=== PATIENT | female | born 1945 | race Caucasian/White ===

== ENCOUNTER → 2024-10-15 07:44 | Outpatient (REF) | payer MEDICARE, BC, SELFPAY | LOC: HWRAD 07:44 | PROVIDERS: ATTENDING PHYSICIAN Family Medicine | DX: Z91.89 Other specified personal risk factors, not elsewhere classified (principal) | CPT/HCPCS: 75571 ==

== ENCOUNTER → 2024-12-02 11:31 | Outpatient (REF) | payer MEDICARE, BC, SELFPAY | LOC: HWWDC 11:31 | PROVIDERS: ATTENDING PHYSICIAN Family Medicine | DX: Z12.31 Encounter for screening mammogram for malignant neoplasm of breast (principal) | CPT/HCPCS: 77063; 77067 ==

== ENCOUNTER → 2025-01-26 09:56 | Outpatient (REF) | payer MEDICARE, BC, SELFPAY | LOC: RCS 09:56 | PROVIDERS: ATTENDING PHYSICIAN Internal Medicine Cardiovascular Disease; FAMILY PHYSICIAN Family Medicine | DX: I25.10 Atherosclerotic heart disease of native coronary artery without angina pectoris (principal); E11.9 Type 2 diabetes mellitus without complications; R06.02 Shortness of breath; M25.569 Pain in unspecified knee; Z01.810 Encounter for preprocedural cardiovascular examination; I25.2 Old myocardial infarction | CPT/HCPCS: 93306 ==

== ENCOUNTER → 2025-01-28 11:23 | Outpatient (REF) | payer MEDICARE, BC, SELFPAY | LOC: HWRCS 11:23 | PROVIDERS: ATTENDING PHYSICIAN Internal Medicine Cardiovascular Disease; FAMILY PHYSICIAN Family Medicine | DX: I25.10 Atherosclerotic heart disease of native coronary artery without angina pectoris (principal); E11.9 Type 2 diabetes mellitus without complications; R06.02 Shortness of breath; M25.569 Pain in unspecified knee; Z01.810 Encounter for preprocedural cardiovascular examination; I25.2 Old myocardial infarction | CPT/HCPCS: 78452; 93017; A9500; J2785 ==

== ENCOUNTER 2025-03-02 07:24 | Inpatient (IN) | payer MEDICARE, BC, SELFPAY ==
--- NOTE | 2025-01-12 11:55 | CM ---
Addendum entered by Abena Buck RN 01/13/25 14:29:
Demographics: confirmed
Living situation: Lives in basement apartment with 7 steps down.
Support Person Post Operatively: Lives with son and his family.
History of
VN: no
SNF: no
Outpatient: Jessie Qureshi, currently awaiting confirming appointments
Has patient purchased required equipment: patient has a walker, plans to order gel wrap, SCD
PCP: active
Pharmacy: [facility]
Post Operative Discharge Plan: Home with family, outpatient PT.
Original Note:
Cm reviewed medical records. CM left message for orthopedic [place].
[2025-01-20 13:44] VITALS: BMI 39.7
[2025-01-20 14:10] LABS: Hematocrit 40.6 % (37.0-47.0); Hemoglobin 13.2 g/dL (12.0-16.0); Mean Corp Hgb Conc. 32.5 g/dL (33.0-37.0); Mean Corpuscular Volume 87.7 fL (81.0-99.0); Platelet Count 177 10^3/uL (130-400); Red Cell Dist. Width 14.5 % (11.5-14.5)
[2025-01-20 14:37] LABS: ALT (SGPT) 18 U/L (0-35); AST (SGOT) 15 U/L (14-36); Albumin 4.1 g/dl (3.5-5.0); Alkaline Phosphatase 59 U/L (38-126); Blood Urea Nitrogen 16 mg/dl (7-17); Calcium 9.3 mg/dl (8.4-10.2); Carbon Dioxide 27 mmol/L (22-30); Chloride 105 mmol/L (98-107); Estimated Creatinine Clearance 95 ml/min; Glucose 233 mg/dl (70-99); Potassium 5.0 mmol/L (3.5-5.1); Sodium 138 mmol/L (135-145); Total Protein 6.6 g/dl (6.3-8.2); eGFR > 60.00
[2025-01-20 17:17] VITALS: BMI 39.7
[2025-01-21 10:31] LABS: Glycohemoglobin (HgbA1c) 7.1 % (4.0-5.9)
--- NOTE | 2025-02-16 14:05 | HPS.HSE ---
Family Physician
-
Family Physician: Mao Manriquez
Chief Complaint
-
Advanced primary osteoarthritis of the right knee.
History of Present Illness
The patient is a 80-year-old female presenting today for advanced primary osteoarthritis of the right knee. The patient reports significant right knee pain and instability secondary to this diagnosis. She notes that her current right knee
pain is greatly interfering with her activities of daily living and is overall impacting her quality of life. She has tried and failed multiple conservative treatment measures in the past for her right knee pain. These conservative treatment
measures include activity modification, self-directed therapeutic exercises, formal physical therapy, attempted weight loss, medical management with NSAIDs, injection therapy, and the application of ice and/or heat. Recent x-ray findings of the
right knee demonstrated [id number] medial compartment osteoarthritis. She was determined to be in need of a right total knee arthroplasty. She denies any current complaints today, such as chest pain, shortness of breath at rest, palpitations,
nausea, vomiting, diarrhea, lightheadedness, dizziness, cough, sore throat, or fever.
Medical History
Past Medical History
Past Medical History: Reports Other
Additional Past Medical History:
1. Osteoarthritis.
2. Elevated blood pressure without diagnosis of hypertension.
3. Hyperlipidemia.
4. Prior myocardial infarction/multivessel coronary artery disease per calcium score 09/2024; recent nuclear stress test stable.
5. PACs, asymptomatic.
6. Mild-moderate valvular disease.
7. Obstructive sleep apnea, noncompliant with CPAP.
8. Bek-xativsw-flfgiizgf diabetes, A1c 7.1.
9. Hiatal hernia.
10. Colon polyps.
11. Diverticulosis with history of diverticulitis.
12. Hepatic steatosis.
13. Migraines.
14. Vertigo.
15. Lumbar degenerative disc disease.
16. Hypothyroidism per records.
17. Fibromyalgia.
18. Gluten sensitivity.
19. Osteoporosis.
20. Insomnia.
21. Obesity, BMI 39.7.
Past Surgical History: Reports Other
Additional Past Surgical History:
1. Total abdominal hysterectomy and bilateral salpingo-oophorectomy.
2. Lysis of adhesions.
3. Ovarian cystectomy and appendectomy.
4. Vaginal band removal.
5. Neck tumor excision (benign).
6. Bilateral retina surgery.
7. [place] teeth extraction.
8. Multiple colonoscopies.
Social History
Tobacco: Non-smoker
Alcohol: None
Living: With Family (in a two-story home. She initially scheduled outpatient PT with [facility]; however, she may change to somewhere closer to home. She was advised that her first session should be the Friday after her surgery. )
Family History
Family History: Not pertinent
Allergies / Home Medications
Allergy/Medication List:
Home medications:
1. Aspirin 325 mg p.o. daily as needed.
2. Beet root 2 tablets p.o. daily.
3. Berberine chloride 1 capsule p.o. daily.
4. Bio Complete 3, 2 capsules p.o. daily.
5. Cholecalciferol 125 mcg p.o. daily.
6. Chromium picolinate 1 capsule p.o. daily.
7. [place] bergamot 2 capsules p.o. daily.
8. Co Q10 1 capsule p.o. daily.
9. Coral calcium 1 capsule p.o. 3 times a week.
10. Duloxetine 20 mg p.o. daily if needed.
11. Gentle patches - GLP 1, 1 patch topical daily.
12. Glimepiride 2 mg p.o. daily.
13. Glutathione 2 capsules p.o. daily.
14. Magnesium complex 1 capsule p.o. 3-4 times a week.
15. Multivitamin 1 tablet p.o. occasionally.
16. [place] XL 2 capsules p.o. daily.
17. Potassium citrate and magnesium 2 capsules p.o. at bedtime.
18. Primal supplement 2 capsules p.o. at bedtime.
19. Resveratrol 2 capsules p.o. daily.
20. Rosuvastatin 20 mg p.o. at bedtime.
21. Saffron extract 1 capsule p.o. twice a day.
22. Ultra biotin 1 capsule p.o. 3-5 times a week.
Allergies: Codeine. Benadryl. Metformin. Prednisone. Tetracyclines.
Review of Systems
-
A 12 point ROS was completed and negative except as noted: Yes
Physical Exam
Vital Signs
Blood pressure 164/92. Heart rate 85. Respirations 18. Pulse ox 95% on room air.
Height 5 feet, 5 inches. Weight 108.3 kg. BMI 39.7.
Physical Exam
General: Well Developed, Well Nourished and No Apparent Distress
HEENT: NormoCephalic, Moist mucous membranes, Atraumatic and PERRLA
Respiratory: Clear
Cardiac: Regular Rhythm
GI: Soft, Non Tender, Non Distended and Other (Obese. )
Musculoskeletal: Other (Right knee: 0-120 range of motion, neutral alignment, positive warmth, positive effusion. Left knee: 0-120 range of motion, neutral alignment, no warmth, positive effusion. Bilateral hips: 10 internal, 10 external with pain
upon passive motion. )
Skin: Warm and Dry
Neuro: AO x 3 and Nonfocal/grossly intact
Laboratory Results
-
01/20/25 12:48
01/20/25 12:48
Laboratory Results
Total Bilirubin 1.0 mg/dl (0.2-1.3) 01/20/25 12:48
AST 15 U/L (14-36) 01/20/25 12:48
ALT 18 U/L (0-35) 01/20/25 12:48
Alkaline Phosphatase 59 U/L (38-126) 01/20/25 12:48
Hemoglobin A1c 7.1.
MRSA screen negative.
EKG 01/20/2025: Sinus rhythm with premature atrial complexes. Otherwise normal EKG.
Echocardiogram 01/26/2025: Ejection fraction is 70-75% by visual assessment. Right ventricular size and systolic function are within normal limits. Dense mitral annular calcification. Mild to moderate mitral valve stenosis. Mean gradient 5 mmHg.
Nuclear stress test 01/28/2025: Negative ECG for ischemia given the pharmacological study. There was a small-sized, mild in intensity, fixed perfusion defect in the mid inferolateral wall consistent with infarction versus soft tissue attenuation
artifact. Systolic function is normal. The ejection fraction is 72%. Stress Risk is low risk study, but the patient may be at moderate risk (risk of 1 - 3% GA or /year) due to the pharmacologic agent used.
Impression/Plan
-
CLEARANCES:
1. Primary medical, Molly Chandler PA-C, cleared.
[facility] medical phone number: [phone].
2. Cardiology, Dr. Torres Kumar, cleared.
3. Dental waived.
IMPRESSION/PLAN:
1. Advanced primary osteoarthritis of the right knee in need of a right total knee arthroplasty by Dr. Michael Huerta on 03/02/2025. The benefits and risks of the procedure have been explained to the patient. The patient understands these risks and
wishes to proceed.
2. DVT prophylaxis: Aspirin and bilateral venous compression devices.
3. Pain management: We will utilize Oxycodone as needed for moderate to severe post-operative pain. We will also include Celebrex 200 mg p.o. daily. She would prefer to avoid Tylenol. We will also try to minimize steroids due to her history of
gxe-hhxsdik-tjjhlinwd diabetes.
4. Post-operative bowel regimen: She will be started on both Colace and Senokot post-procedure. These will be taken twice a day post-procedure, regardless of oral intake, until she is having regular bowel movements. Adequate hydration, early
mobility as tolerated, and the minimization of opioids have been discussed fela-operatively.
5. Elevated infection risk: The patient is considered to be an elevated risk of infection due to her elevated BMI >35 and her zfj-hydbucu-ojvlcpdfy diabetes. Because of this, she will be prescribed Cefadroxil upon discharge. Probiotic use will be
highly encouraged while on this antibiotic.
Patient's home phone number: [phone].
Patient's cell phone number: [phone].
Patient's contact (Cornelius Moore - Son): [phone].
[2025-03-02] VITALS (20 sets, daily range): BP systolic 115–188; BP diastolic 56–108; PULSE 79; O2SAT 94
[2025-03-02 07:52] LABS: Glucose - Point of Care 184 mg/dl (70-99)
[2025-03-02] MEDS: CELEBREX 200 MG PO (08:08)
[2025-03-02] MEDS: NORMOSOL-R/PLASMALYTE-A 1000 IV ×2 (08:08→12:03)
[2025-03-02 10:37] LABS: Glucose - Point of Care 207 mg/dl (70-99)
[2025-03-02] MEDS: ZOFRAN 4 MG IV ×2 (11:23→19:04)
[2025-03-02] MEDS: ROXICODONE 5 MG PO (12:01)
--- NOTE | 2025-03-02 12:18 | W.PN.ORTHO ---
Today's Communication / Plan
-
d/c when stable
Assessment
.
Distal Motor Intact: Yes
Assessment:
NIDDM-add Novolog and Lantus-Cefadroxil ppx
Plan
.
Surgery / Date: R CACHORRO Huerta 03/02/25
DVT Prophylaxis: Aspirin
Activity:
Out of bed.
PT/OT
Discharge Plan: Home w/ Outpatient PT
Vital Signs and Labs
.
Vital Signs and Labs:
Lab Results
01/20/25 12:48
01/20/25 12:48
Temp Pulse Resp BP Pulse Ox
98.9 F 73 14 155/76 95
03/02/25 10:10 03/02/25 12:00 03/02/25 12:00 03/02/25 11:46 03/02/25 12:00
Physical Exam
-
HEENT: No pallor, cyanosis, or jaundice. Throat clear.
NECK: Supple. No JVD.
RESPIRATORY: Lungs clear to auscultation.
CVS: S1, S2 normal. RRR.� No murmur, rub or gallop.
ABDOMEN: Soft, non-tender. No distension. BS+/normal.
EXTREMITIES: strength equal, no calf pain with palpation
TYPEWRITER ALIGNER: AOx3. No focal deficits. accounts receivable assistant grossly intact
--- NOTE | 2025-03-02 12:24 | W.DS.TRANS ---
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
-
Discharge Instructions:
Discharge Diagnosis/Procedures R knee OA s/p R TKA w/ Dr Huerta 01/26/2025
Diet Diabetic, Carb Controlled
Additional Diets Adequate hydration, minimize opioids, and wear
TEDs stockings to prevent low blood pressure/
dizziness.
Activity As tolerated,With Walker
Driving Restrictions Not until seen by your Dr
Bathing Restrictions OK to Shower
Other Services PT
Wound Care Dressing to be removed 1 week post-surgery.
Instructions:
Stand-Alone Forms: Total Hip/Knee Replacement D/C
Changes to Home Medications: Yes
Discharge Medications:
DC Medications w/original date entered in [employer]
Beetroot 2 tab PO DAILY 01/18/25
Held on 03/02/25. Instructions: Resume on 03/10/25.
Biocomplete 3 2 cap PO DAILY 01/18/25
Held on 03/02/25. Instructions: Resume on 03/10/25.
[place] Bergamot 2 cap PO DAILY 01/18/25
Held on 03/02/25. Instructions: Resume on 03/10/25.
Co Q-10 1 cap PO DAILY 01/18/25
Held on 03/02/25. Instructions: Resume on 03/10/25.
Coral Calcium 1 cap PO .3 TIMES/WEEK 01/18/25
Gentle Patches - Glp 1 Patch 1 patch topical DAILY 01/18/25
Magnesium Complex 1 cap PO .3-4 TIMES/WEEK 01/18/25
[place] Xl 2 cap PO DAILY 01/18/25
Held on 03/02/25. Instructions: Resume on 03/10/25.
Potassium Citrate & Magnesium 2 cap PO HS 01/18/25
Primal Supplement 2 cap PO HS 01/18/25
Held on 03/02/25. Instructions: Resume on 03/10/25.
Ultra Biotin 1 cap PO .3 TO 5 TIMES/WEEK 01/18/25
Held on 03/02/25. Instructions: Resume on 03/10/25.
berberine chloride 1 cap PO DAILY 01/18/25
Held on 03/02/25. Instructions: Resume on 03/10/25.
cholecalciferol (vitamin D3) 125 mcg (5,000 unit) tablet (Vitamin D3) 125 mcg PO DAILY 01/18/25
chromium picolinate 1 cap PO DAILY 01/18/25
Held on 03/02/25. Instructions: Resume on 03/10/25.
duloxetine 20 mg capsule,delayed release 20 mg PO PRN PRN if no sleep for 3 days 01/18/25
glimepiride 2 mg tablet 2 mg PO DAILY 01/18/25
glutathione 2 cap PO DAILY 01/18/25
Held on 03/02/25. Instructions: Resume on 03/10/25.
multivitamin 1 tab PO .OCCASIONALLY 01/18/25
Held on 03/02/25. Instructions: Resume on 03/10/25.
resveratrol 2 cap PO DAILY 01/18/25
Held on 03/02/25. Instructions: Resume on 03/10/25.
rosuvastatin 20 mg tablet 20 mg PO HS 01/18/25
saffron extract 1 cap PO BID 01/18/25
Held on 03/02/25. Instructions: Resume on 03/10/25.
mupirocin 2 % topical ointment 1 applic intranasal BID #1 tube 01/20/25
cefadroxil 500 mg capsule 500 mg PO BID #14 caps 01/21/25
celecoxib 200 mg capsule (Celebrex) 200 mg PO DAILY #14 caps 01/21/25
famotidine 20 mg tablet (Pepcid) 20 mg PO HS #30 tabs 01/21/25
ondansetron HCl 4 mg tablet 4 mg PO Q6H PRN nausea and vomiting #30 tabs 01/21/25
oxycodone 5 mg tablet 5 - 10 mg (1 - 2 x 5 mg) PO Q6H PRN moderate-severe pain #30 tabs 01/21/25
Saccharomyces boulardii 250 mg capsule (Florastor) 250 mg PO BID #1 cap 03/02/25
aspirin 325 mg capsule 325 mg PO DAILY Blood clot prevention/tx #0 caps 03/02/25
docusate sodium 100 mg capsule (Colace) 100 mg PO BID stool softner #1 cap 03/02/25
magnesium hydroxide 400 mg/5 mL oral suspension (Milk of Magnesia) 30 ml PO HS PRN constipation #1 mL 03/02/25
sennosides 8.6 mg tablet (Senokot) 17.2 mg (2 x 8.6 mg) PO BID laxative #2 tabs 03/02/25
Home Medication Changes
mupirocin 2 % topical ointment 1 applic intranasal BID #1 tube 01/20/25
cefadroxil 500 mg capsule 500 mg PO BID #14 caps 01/21/25
celecoxib 200 mg capsule (Celebrex) 200 mg PO DAILY #14 caps 01/21/25
famotidine 20 mg tablet (Pepcid) 20 mg PO HS #30 tabs 01/21/25
ondansetron HCl 4 mg tablet 4 mg PO Q6H PRN nausea and vomiting #30 tabs 01/21/25
oxycodone 5 mg tablet 5 - 10 mg (1 - 2 x 5 mg) PO Q6H PRN moderate-severe pain #30 tabs 01/21/25
Saccharomyces boulardii 250 mg capsule (Florastor) 250 mg PO BID #1 cap 03/02/25
aspirin 325 mg capsule 325 mg PO DAILY Blood clot prevention/tx #0 caps 03/02/25
docusate sodium 100 mg capsule (Colace) 100 mg PO BID stool softner #1 cap 03/02/25
magnesium hydroxide 400 mg/5 mL oral suspension (Milk of Magnesia) 30 ml PO HS PRN constipation #1 mL 03/02/25
sennosides 8.6 mg tablet (Senokot) 17.2 mg (2 x 8.6 mg) PO BID laxative #2 tabs 03/02/25
Pending Results: No
--- NOTE | 2025-03-02 12:30 | PTCARENOTE ---
Received patient from ED via stretcher. Pt AAOX3. Pox: 97% RA. IVFs infusing without difficulty. Plan of care ongoing.
[2025-03-02 13:03] LABS: Glucose - Point of Care 249 mg/dl (70-99)
[2025-03-02] MEDS: LANTUS 0.08 UNITS SC (13:53)
[2025-03-02] MEDS: ROXICODONE 10 MG PO ×2 (15:10→21:51)
[2025-03-02 16:10] LABS: Glucose - Point of Care 373 mg/dl (70-99)
[2025-03-02] MEDS: ANCEF 5 IV (16:33)
[2025-03-02] MEDS: NOVOLOG FLEXPEN-MODERATE RESISTANCE 9 UNITS SC (16:33)
[2025-03-02] MEDS: ASPIRIN 325 MG PO (17:24)
[2025-03-02] MEDS: BACTROBAN 2% OINTMENT 1 APPLIC NASAL (20:12)
[2025-03-02] MEDS: COMPAZINE 5 MG PO (20:24)
[2025-03-02] MEDS: COLACE 100 MG PO (20:25)
[2025-03-02] MEDS: SENOKOT 17.2 MG PO (20:25)
[2025-03-02] MEDS: TORADOL 15 MG IV (20:25)
[2025-03-02 21:34] LABS: Glucose - Point of Care 288 mg/dl (70-99)
[2025-03-03] MEDS: ANCEF 5 IV (00:07)
[2025-03-03] MEDS: ZOFRAN 4 MG IV (01:12)
[2025-03-03 01:45] VITALS: BP 164/75
[2025-03-03 07:45] LABS: Glucose - Point of Care 225 mg/dl (70-99)
[2025-03-03 08:05] VITALS: BP 185/95
[2025-03-03] MEDS: NOVOLOG FLEXPEN-MODERATE RESISTANCE 3 UNITS SC (08:27)
[2025-03-03] MEDS: LANTUS 0.08 UNITS SC (08:28)
[2025-03-03] MEDS: DECADRON 4 MG IV (08:29)
[2025-03-03] MEDS: ASPIRIN 325 MG PO (08:29)
[2025-03-03] MEDS: MOBIC 15 MG PO (08:29)
[2025-03-03] MEDS: TORADOL 15 MG IV (08:29)
[2025-03-03] MEDS: SENOKOT 17.2 MG PO (08:29)
[2025-03-03] MEDS: COLACE 100 MG PO (08:29)
[2025-03-03] MEDS: BACTROBAN 2% OINTMENT 1 APPLIC NASAL (08:30)
[2025-03-03 09:32] VITALS: BP 137/84; BP 172/96; PULSE 92; O2SAT 94
--- NOTE | 2025-03-03 10:09 | CM ---
Chart reviewed and case repairer met with patient this morning, and spoke with physical therapy, and patient reports she is doing well, and has set up outpatient physical therapy at [facility], 03/04, family are able to provide
transportation to outpatient therapy.
Plan; Home with outpatient therapy at [facility], 03/04.
--- NOTE | 2025-03-03 10:29 | W.PN.ORTHO ---
Today's Communication / Plan
-
d/c
Assessment
.
Distal Motor Intact: Yes
Dressing:
Clean, dry and intact.
Assessment:
NIDDM-add Novolog and Lantus-Cefadroxil ppx--strict diet control stressed
Labile BP-at times spiking >165--will Rx BB w/ parameter as indictaed both for HTN and hx PACs
N/V secondary to Oxy-change Tramadol and reserve Oxy for intractable severe pain to be taken with Zofran
Plan
.
Surgery / Date: R TKA Dr Huerta 03/02/25
DVT Prophylaxis: Aspirin
Activity:
Out of bed.
PT/OT
Discharge Plan: Home w/ Outpatient PT
Subjective
.
.:
Patient resting comfortably.
Vital Signs and Labs
.
Vital Signs and Labs:
Lab Results
01/20/25 12:48
01/20/25 12:48
Temp Pulse Resp BP Pulse Ox
98.9 F 95 16 164/75 94
03/02/25 23:00 03/02/25 23:00 03/02/25 23:00 03/03/25 01:45 03/03/25 02:17
Non-invasive Hgb result: 13.1
Physical Exam
-
HEENT: No pallor, cyanosis, or jaundice. Throat clear.
NECK: Supple. No JVD.
RESPIRATORY: Lungs clear to auscultation.
CVS: S1, S2 normal. RRR.� No murmur, rub or gallop.
ABDOMEN: Soft, non-tender. No distension. BS+/normal.
EXTREMITIES: strength equal, no calf pain with palpation
MAIL ROOM: AOx3. No focal deficits. division chief grossly intact
--- NOTE | 2025-03-03 10:43 | W.DS.TRANS ---
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
-
Discharge Instructions:
Discharge Diagnosis/Procedures R knee OA s/p R TKA w/ Dr Huerta 01/26/2025
Diet Diabetic, Carb Controlled
Additional Diets Adequate hydration, minimize opioids, and wear
TEDs stockings to prevent low blood pressure/
dizziness.
Activity As tolerated,With Walker
Driving Restrictions Not until seen by your Dr
Bathing Restrictions OK to Shower
Other Services PT
Wound Care Dressing to be removed 1 week post-surgery.
Instructions:
Stand-Alone Forms: Total Hip/Knee Replacement D/C
Changes to Home Medications: Yes
Discharge Medications:
DC Medications w/original date entered in [email or web address]
Beetroot 2 tab PO DAILY 01/18/25
Held on 03/02/25. Instructions: Resume on 03/10/25.
Biocomplete 3 2 cap PO DAILY 01/18/25
Held on 03/02/25. Instructions: Resume on 03/10/25.
[place] Bergamot 2 cap PO DAILY 01/18/25
Held on 03/02/25. Instructions: Resume on 03/10/25.
Co Q-10 1 cap PO DAILY 01/18/25
Held on 03/02/25. Instructions: Resume on 03/10/25.
[place]oral Calcium 1 cap PO .3 TIMES/WEEK 01/18/25
Gentle Patches - Glp 1 Patch 1 patch topical DAILY 01/18/25
Magnesium Complex 1 cap PO .3-4 TIMES/WEEK 01/18/25
[place] Xl 2 cap PO DAILY 01/18/25
Held on 03/02/25. Instructions: Resume on 03/10/25.
Potassium Citrate & Magnesium 2 cap PO HS 01/18/25
Primal Supplement 2 cap PO HS 01/18/25
Held on 03/02/25. Instructions: Resume on 03/10/25.
Ultra Biotin 1 cap PO .3 TO 5 TIMES/WEEK 01/18/25
Held on 03/02/25. Instructions: Resume on 03/10/25.
berberine chloride 1 cap PO DAILY 01/18/25
Held on 03/02/25. Instructions: Resume on 03/10/25.
cholecalciferol (vitamin D3) 125 mcg (5,000 unit) tablet (Vitamin D3) 125 mcg PO DAILY 01/18/25
chromium picolinate 1 cap PO DAILY 01/18/25
Held on 03/02/25. Instructions: Resume on 03/10/25.
duloxetine 20 mg capsule,delayed release 20 mg PO PRN PRN if no sleep for 3 days 01/18/25
glimepiride 2 mg tablet 2 mg PO DAILY 01/18/25
glutathione 2 cap PO DAILY 01/18/25
Held on 03/02/25. Instructions: Resume on 03/10/25.
multivitamin 1 tab PO .OCCASIONALLY 01/18/25
Held on 03/02/25. Instructions: Resume on 03/10/25.
resveratrol 2 cap PO DAILY 01/18/25
Held on 03/02/25. Instructions: Resume on 03/10/25.
rosuvastatin 20 mg tablet 20 mg PO HS 01/18/25
saffron extract 1 cap PO BID 01/18/25
Held on 03/02/25. Instructions: Resume on 03/10/25.
mupirocin 2 % topical ointment 1 applic intranasal BID #1 tube 01/20/25
cefadroxil 500 mg capsule 500 mg PO BID #14 caps 01/21/25
celecoxib 200 mg capsule (Celebrex) 200 mg PO DAILY #14 caps 01/21/25
famotidine 20 mg tablet (Pepcid) 20 mg PO HS #30 tabs 01/21/25
ondansetron HCl 4 mg tablet 4 mg PO Q6H PRN nausea and vomiting #30 tabs 01/21/25
oxycodone 5 mg tablet 5 - 10 mg (1 - 2 x 5 mg) PO Q6H PRN moderate-severe pain #30 tabs 01/21/25
Saccharomyces boulardii 250 mg capsule (Florastor) 250 mg PO BID #1 cap 03/02/25
aspirin 325 mg capsule 325 mg PO DAILY Blood clot prevention/tx #0 caps 03/02/25
docusate sodium 100 mg capsule (Colace) 100 mg PO BID stool softner #1 cap 03/02/25
magnesium hydroxide 400 mg/5 mL oral suspension (Milk of Magnesia) 30 ml PO HS PRN constipation #1 mL 03/02/25
sennosides 8.6 mg tablet (Senokot) 17.2 mg (2 x 8.6 mg) PO BID laxative #2 tabs 03/02/25
carvedilol 3.125 mg tablet 3.125 mg PO BID Blood pressure/pacs #60 tabs 03/03/25
tramadol 50 mg tablet 50 mg PO Q6H PRN 1 tab moderate pain, 2 if severe #30 tabs 03/03/25
Home Medication Changes
mupirocin 2 % topical ointment 1 applic intranasal BID #1 tube 01/20/25
cefadroxil 500 mg capsule 500 mg PO BID #14 caps 01/21/25
celecoxib 200 mg capsule (Celebrex) 200 mg PO DAILY #14 caps 01/21/25
famotidine 20 mg tablet (Pepcid) 20 mg PO HS #30 tabs 01/21/25
ondansetron HCl 4 mg tablet 4 mg PO Q6H PRN nausea and vomiting #30 tabs 01/21/25
oxycodone 5 mg tablet 5 - 10 mg (1 - 2 x 5 mg) PO Q6H PRN moderate-severe pain #30 tabs 01/21/25
Saccharomyces boulardii 250 mg capsule (Florastor) 250 mg PO BID #1 cap 03/02/25
aspirin 325 mg capsule 325 mg PO DAILY Blood clot prevention/tx #0 caps 03/02/25
docusate sodium 100 mg capsule (Colace) 100 mg PO BID stool softner #1 cap 03/02/25
magnesium hydroxide 400 mg/5 mL oral suspension (Milk of Magnesia) 30 ml PO HS PRN constipation #1 mL 03/02/25
sennosides 8.6 mg tablet (Senokot) 17.2 mg (2 x 8.6 mg) PO BID laxative #2 tabs 03/02/25
carvedilol 3.125 mg tablet 3.125 mg PO BID Blood pressure/pacs #60 tabs 03/03/25
tramadol 50 mg tablet 50 mg PO Q6H PRN 1 tab moderate pain, 2 if severe #30 tabs 03/03/25
Pending Results: No
[2025-03-03] MEDS: ULTRAM 50 MG PO ×2 (11:51→14:17)
[2025-03-03 12:30] LABS: Glucose - Point of Care 302 mg/dl (70-99)
[2025-03-03] MEDS: NOVOLOG FLEXPEN-MODERATE RESISTANCE 7 UNITS SC (12:35)
[2025-03-03 12:50] VITALS: BP 171/79
[2025-03-03 13:00] VITALS: BP 171/79
[2025-03-03] MEDS: COREG 3.125 MG PO (14:17)
[2025-03-03 19:16] LABS: Hepatitis C Antibody Negative (Negative)
== END 2025-03-03 15:45 | disposition home or self-care (01) | DRG 470 ==
LOC: 2 SOUTH 07:24
PROVIDERS: ADMITTING PHYSICIAN Orthopaedic Surgery; FAMILY PHYSICIAN Family Medicine
PROC: 0SRC0J9 Replacement of Right Knee Joint with Synthetic Substitute, Cemented, Open Approach (ICD-10-PCS; 2025-03-02)
DX: M17.11 Unilateral primary osteoarthritis, right knee (principal); E78.5 Hyperlipidemia, unspecified; I25.10 Atherosclerotic heart disease of native coronary artery without angina pectoris; R03.0 Elevated blood-pressure reading, without diagnosis of hypertension; E11.9 Type 2 diabetes mellitus without complications; K44.9 Diaphragmatic hernia without obstruction or gangrene; E66.9 Obesity, unspecified; Z68.39 Body mass index [BMI] 39.0-39.9, adult; G47.00 Insomnia, unspecified; E03.9 Hypothyroidism, unspecified; G43.909 Migraine, unspecified, not intractable, without status migrainosus; G47.33 Obstructive sleep apnea (adult) (pediatric); R11.2 Nausea with vomiting, unspecified; T40.2X5A Adverse effect of other opioids, initial encounter; I25.2 Old myocardial infarction; K57.30 Diverticulosis of large intestine without perforation or abscess without bleeding; K76.0 Fatty (change of) liver, not elsewhere classified; M51.369 Other intervertebral disc degeneration, lumbar region without mention of lumbar back pain or lower extremity pain; M79.7 Fibromyalgia; M81.0 Age-related osteoporosis without current pathological fracture; Z91.199 Patient's noncompliance with other medical treatment and regimen due to unspecified reason; Z79.899 Other long term (current) drug therapy
CPT/HCPCS: 36415; 73560; 80053; 82962; 83036; 85027; 86803; 87070; 93005; 97110; 97116; 97162; 97166; 97530; 97535